=== PATIENT | male | born 1990 | race African-American/Black ===

== ENCOUNTER 2016-10-25 06:28 | Emergency (ER) | payer OTHER ==
[~2016-10-25] VITALS: Ht 182.9 cm; Wt 83.1 kg
[2016-10-25 08:05] VITALS: BP 140/86
== END 2016-10-25 08:06 | disposition home or self-care (01) ==
LOC: EME 06:28
DX: S01.01XA Laceration without foreign body of scalp, initial encounter (principal); W22.8XXA Striking against or struck by other objects, initial encounter; Y99.0 Civilian activity done for income or pay; Z23 Encounter for immunization; Z72.0 Tobacco use
CPT/HCPCS: 99281; 99284